=== PATIENT | female | born 1935 | race Caucasian/White ===

== ENCOUNTER → 2017-02-12 | Outpatient (CLI) | payer MEDICARE, OTHER ==
--- NOTE | 2017-02-12 16:45 | RADRPT ---
PROCEDURE: XR left knee. CLINICAL INDICATION: Knee pain TECHNIQUE: AP weightbearing, lateral weightbearing and sunrise views are available for review. COMPARISON: None available FINDINGS: There is moderate osteoarthrosis involving the medial tibial femoral compartment and mild osteoarthr osis involving the lateral tibial femoral compartment and the patellofemoral compartment. This is as sociated with joint space narrowing, subchondral sclerosis and osteophytosis. There is chondrocalcin osis with medial and lateral meniscal calcification There is otherwise normal mineralization, architecture and alignment. No fractures are identified. No osseous lesions are identified. The soft tissues are unremarkable. IMPRESSION: Moderate osteoarthrosis involving the medial tibial femoral compartment and mild osteoarthrosis invo lving the lateral tibial femoral compartment and the patellofemoral compartment. Chondrocalcinosis RPTAT: HGDB .Neo Suh MD, MD Date Time Electronically viewed and signed by .Neo Suh MD, on 02/12/2017 16:45 .B/
--- NOTE | 2017-02-13 03:50 | HKNOTE ---
DATE OF SERVICE: 02/12/2017 SUMMARY OF VISIT: (See written notes for details). MAIN COMPLAINT: Pain in the left knee. HISTORY OF MAIN COMPLAINT: The patient is an 81-year-old female who underwent a right total knee re placement which was performed by me in 2001. She has been very pleased with the results of the surg joe except that the knee does not flex all the way. She has now developed pain in the left knee without any history of injury. She has been taking [id number] anti-inflammatory medications which did not help much. The knee swells. There is no locking and no instability. She is still playing golf 3 times a week, 18 holes with a golf cart. PAST MEDICAL HISTORY: Includes hysterectomy, knee replacement and gallbladder replacement. PHYSICAL EXAMINATION: LEFT KNEE: 3+ crepitus in the knee and none in the patella. 1+ effusion. Pain on forced flexion. RIGHT KNEE: Scar of previous knee replacement, extension is full, flexion to 95 degrees. IMAGING: Plain x-rays of the left knee obtained today (3 views) show moderate degenerative changes of the medial and lateral compartments. DIAGNOSIS: Degenerative osteoarthritis of the left knee without any symptoms suggestive of an inter nal derangement. MANAGEMENT: Under sterile conditions, gave injection of 2 mL of Kenalog and 6 mL of 2% lidocaine in to the left knee joint. She will be seen again as necessary for further evaluation and treatment. Dictated By: COLLIN AGUILAR/TIFFANY Conf#: [id number] DID#: [id number]
== END | disposition home or self-care (01) ==
LOC: HKI 13:53
DX: M17.12 Unilateral primary osteoarthritis, left knee (principal)
CPT/HCPCS: 20610; 73562; G0463

== ENCOUNTER → 2017-03-06 | Outpatient (CLI) | payer MEDICARE, OTHER ==
--- NOTE | 2017-03-07 06:39 | HKNOTE ---
DATE OF SERVICE: 03/06/2017 The patient states that the cortisone injection I gave into her left knee at the last visit gave her very little relief (for 5 days). She has a great deal of pain, especially since she played golf 2 days ago. The pain is constantly present, but is aggravated by walking, weightbearing and stair cli mbing. She also has restless legs syndrome. She is on Mirapex. The left knee swells and it occasionally locks. There is no instability. PHYSICAL EXAMINATION: The patient walks without a walking aid. She has an antalgic gait. VITAL SIGNS: Blood pressure 125/60, temperature 98.9. LEFT KNEE: The left knee shows normal alignment. Active and passive extension is 0 degrees. Active and passive flexion is 135 degrees. The medial and lateral collateral ligaments and cruciate ligamen ts are intact. Delia test is negative. There is no scarring, crepitus, or cysts. The patella track s normally. There is no tenderness on the articular surface of the patella or in the patellar groove . The Q angle is normal. 1+ effusion, tender over the medial joint line. Extension lacks 3 degrees. Flexion lacks 20 degre es. Marked pain at the limits of motion. MANAGEMENT: The patient is being sent for MRI scan of the knee and I will call her with the result as soon as it is available. Dictated By: COLLIN AGUILAR/TIFFANY Conf#: [id number] DID#: [id number]
== END | disposition home or self-care (01) ==
LOC: HKI 14:36
DX: M25.562 Pain in left knee (principal); R22.42 Localized swelling, mass and lump, left lower limb

== ENCOUNTER → 2017-04-03 | Outpatient (CLI) | payer MEDICARE, OTHER ==
[~2017-04-03] MED LIST: ESTR2TAB PO; MORPHINE ORAL; MULT-853 PO; MV-M1TAB37 PO; PRAM0.1224 PO; SOLI5TAB5 PO; TESTOSTERONE
--- NOTE | 2017-04-10 07:18 | HKNOTE ---
DATE OF SERVICE: 04/03/2017 HISTORY OF PRESENT ILLNESS: The patient comes in for preoperative examination for her operative arthroscopy. She is scheduled for operative arthroscopy on 04/04/2017. She continues to have significant symptoms due to her knee. The recent MRI shows that she has a displaced FLAP tear of the medial meniscus and as well has a torn lateral meniscus. She is in good health at this time. She is being cleared for surgery by Dr. Franklin Lucero. Numerous questions were asked and answered. She will stay overnight because she lives alone and there is no one to take her home on 04/04 and no one to care for her when she gets home. She will have a 23 hour stay. Dictated By: Leonides Harrell MD /bret/cory /Document#: [id number]
== END | disposition home or self-care (01) ==
LOC: HKI 14:16
DX: Z01.818 Encounter for other preprocedural examination (principal)
CPT/HCPCS: G0463

== ENCOUNTER 2017-04-04 06:23 | Observation (INO) | payer MEDICARE, OTHER ==
[2017-04-03 15:39] VITALS: BMI 20.7
[~2017-04-04] VITALS: Ht 170.2 cm; Wt 59.9 kg
[2017-04-04] VITALS (21 sets, daily range): BP systolic 107–151; BP diastolic 52–87; PULSE 52–66; RESP 17–18; Ht 170.2 cm; Wt 59.9 kg
[2017-04-04] MEDS ORDERED: ETOMIDATE 20 MG INJ ONE (07:00)
[2017-04-04] MEDS ORDERED: DEXAMETHASONE 4 MG/ML 1 ML INJ IV ONE (07:00)
[2017-04-04] MEDS ORDERED: oxyCODONE (CR) 10 MG TAB [oxyCONTIN] PO ONE (07:00)
[2017-04-04] MEDS ORDERED: LANSOPRAZOLE 30 MG CAP PO ONE (07:00)
[2017-04-04] MEDS ORDERED: VANCOMYCIN 1 GM (PMX) 250 ML IVPB SCH (07:00)
[2017-04-04] MEDS ORDERED: ACETAMINOPHEN 1000MG/100ML IV 100 ML IVPB ONE (07:00)
[2017-04-04] MEDS ORDERED: ONDANSETRON 4 MG INJ IV ONE (07:00)
[2017-04-04] MEDS ORDERED: CELECOXIB 200 MG CAP PO ONE (07:00)
[2017-04-04] MEDS ORDERED: EPHEDrine SULFATE 50 MG/5 ML SYG ONE (07:00)
[2017-04-04] MEDS ORDERED: ESTR2TAB PO (07:03)
[2017-04-04] MEDS ORDERED: MULT-853 PO (07:03)
[2017-04-04] MEDS ORDERED: PRAM0.1224 PO (07:03)
[2017-04-04] MEDS ORDERED: SOLI5TAB5 PO (07:03)
[2017-04-04] MEDS ORDERED: MV-M1TAB37 PO (07:03)
[2017-04-04] MEDS ORDERED: MORPHINE ORAL (07:03)
[2017-04-04] MEDS ORDERED: TESTOSTERONE (07:03)
[2017-04-04] MEDS: LACTATED RINGER'S 1,000 ML IV* SCH ×2 (07:05→14:11)
[2017-04-04] MEDS ORDERED: morphine SULFATE/PF (10 MG/10 ML) INJ ONE (07:45)
[2017-04-04] MEDS ORDERED: ROPIVACAINE 0.5 % 30 ML VIAL ONE (07:45)
[2017-04-04] MEDS ORDERED: KETOROLAC 30 MG INJ ONE (07:45)
[2017-04-04] MEDS ORDERED: BUPIVACAINE 0.25%/EPI (SDV) 30 ML INJ ONE (07:45)
[2017-04-04] MEDS ORDERED: MIDAZOLAM 1 MG/ML 2 ML INJ ONE (08:01)
[2017-04-04] MEDS ORDERED: PROPOFOL 20 ML ONE (08:02)
[2017-04-04] MEDS ORDERED: LIDOCAINE 2% (SDV) 5 ML INJ ONE (08:02)
[2017-04-04] MEDS ORDERED: FENTAnyl 50 MCG/ML VIAL ONE (08:02)
[2017-04-04] MEDS ORDERED: METOCLOPRAMIDE 10 MG INJ ONE (08:02)
--- NOTE | 2017-04-04 08:15 | HPN ---
Date/Time of Note Date/Time of Note DATE: 04/04/17 TIME: 08:15 Interval H&P Admission Note Pt. seen H&P reviewed: No system changes CURTIS BAY PA-C Apr 04, 2017 08:15
--- NOTE | 2017-04-04 09:51 | PDOCDIS ---
Discharge Instructions DIAGNOSIS Discharge Diagnosis Status post left knee partial medial and lateral meniscectomy CONDITION Patient Condition: Stable HOME CARE INSTRUCTIONS: Diet Instructions: Regular ACTIVITY: Activity Restrictions: Slowly Increase Activity Rest between Activity Avoid heavy lifting No Sexual Activity Do not Drive Do not operate Machinery Do not operate Power Tool Avoid Heavy Housework Keep Limb Elevated (While at rest and apply ice modalities.) Weight Bearing (Weightbearing as tolerated. May use crutch for assisted ambulation.) Bathing Restrictions: Shower (May shower but keep area of operation dry during shower until patient is seen at postoperative visit.) FOLLOW UP/APPOINTMENTS Follow-up Plan Follow-up in outpatient office on 04/08/2017 at 2:15 PM CURTIS BAY PA-C Apr 04, 2017 09:51
[2017-04-04] MEDS ORDERED: HYDROCODONE/APAP (10/325) TAB PO PRN (10:00)
[2017-04-04] MEDS ORDERED: morphine 10 MG INJ IV PRN (10:00)
[2017-04-04] MEDS ORDERED: ONDANSETRON 4 MG INJ IV PRN ×2 (10:00)
[2017-04-04] MEDS ORDERED: HYDROCODONE/APAP (5/325) TAB PO PRN (10:00)
[2017-04-04] MEDS ORDERED: ACETAMINOPHEN 1000MG/100ML IV 100 ML IVPB SCH (10:00)
[2017-04-04] MEDS: HYDROmorphONE (0.2 MG/ML) 10ML SYG IV PRN ×2 (10:12→10:17)
--- NOTE | 2017-04-04 13:32 | CONS ---
Date/Time of Note Date/Time of Note DATE: 04/04/17 TIME: 13:22 Assessment/Plan Assessment/Plan Problems: (1) Restless legs syndrome Status: Chronic Comment: Cont. mirapex and nighttime morphine. Hopefully will remain controlled as pt. indicates very resistant symptoms. (2) Urge incontinence Status: Chronic Comment: Cont. vesicare (3) Menopausal and perimenopausal disorder Status: Chronic Comment: Cont. home compounded hormones (4) Tear of meniscus of left knee Status: Resolved Comment: Doing well POD#0 w/ some mild nausea as anesthesia reaction. Pt. to have PT and likely will go home tomorrow. This is ok from med standpoint. Consultation Date/Type/Reason Admit Date/Time Apr 04, 2017 at 09:48 Date of Consultation: Apr 04, 2017 Type of Consultation: Medicine Reason for Consultation Medical Management Referring Provider: COLLIN MAO MD Hx of Present Illness 82 y/o C F w/ h/o RLS, urinary urge incontinence, and OA p/w 1 m. h/o L knee acute pain. Found not to be OA but meniscal tear. Did not respond to injection therapy. Now here for scheduled meniscus repair which was done this am. Pt. POD#0 and doing well. C/o mild nausea but no other complaints. Constitutional: improved, no complaints Eyes: no complaints ENT: no complaints Respiratory: no complaints Cardiovascular: no complaints Gastrointestinal: nausea Genitourinary: no complaints Musculoskeletal: no complaints Neurologic: no complaints Past Medical History Medical History: other (RLS, urge incontinence, OA) Past Surgical History Past Surgical Hx: cholecystectomy, other (ALANNAH, R TKA) Family History Significant Family History: no pertinent family hx Social History b. [place], some college, mostly [employer] mother w/ minimal work, now , 2 children, 1 Alcohol Use: occasionally Smoking Status: Former smoker (4.5 pack-year of smoking) Drug Use: none Exam/Review of Systems Vital Signs Vitals VS - Last 72 Hours, by Label Date Time Temp Pulse Resp B/P Pulse Ox O2 Delivery O2 Flow Rate FiO2 04/04/17 10:29 54 17 127/52 100 Nasal Cannula 2.0 04/04/17 10:24 52 17 133/55 100 Nasal Cannula 2.0 04/04/17 10:19 58 18 124/58 99 Nasal Cannula 2.0 04/04/17 10:14 64 18 137/70 97 Nasal Cannula 2.0 04/04/17 10:09 56 18 141/68 98 Nasal Cannula 2.0 04/04/17 10:04 66 18 142/67 96 Nasal Cannula 2.0 04/04/17 09:59 60 18 150/63 99 Nasal Cannula 2.0 04/04/17 09:56 52 18 139/78 100 Nasal Cannula 2.0 04/04/17 09:54 52 18 147/61 100 Nasal Cannula 2.0 04/04/17 09:52 52 18 151/59 100 Nasal Cannula 2.0 04/04/17 09:50 52 18 145/59 100 Nasal Cannula 2.0 04/04/17 09:49 98.4 04/04/17 09:45 98.2 65 18 145/63 99 Nasal Cannula 3.0 04/04/17 07:06 97.4 55 18 136/63 98 Room Air Vital Signs Date Time Temp Pulse Resp B/P Pulse Ox O2 Delivery O2 Flow Rate FiO2 04/04/17 10:29 54 17 127/52 100 Nasal Cannula 2.0 04/04/17 09:49 98.4 Exam Constitutional: alert, oriented, well developed Psych: nl mood/affect, no complaints Eyes: EOMI, PERRL, nl conjunctiva, nl lids, nl sclera ENMT: mucosa pink and moist, nl external ears & nose Neck: non-tender, supple, No bruits, No masses, No thyromegaly Respiratory: clear to auscultation, normal air movement Cardiovascular: nl pulses, regular rate and rhythm, No edema, No murmurs/extra sounds, No rub Gastrointestinal: bowel sounds, nl liver, spleen, non-tender, soft, No mass, No rebound or guarding Musculoskeletal: nl extremities to inspection Extremities: normal pulses, No clubbing, No cyanosis, No edema Neurological: 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 intact, nl mental status, nl speech, nl strength Medications Medications Current Medications Lactated Ringer's (Lr) 1,000 ml @ 125 mls/hr Q8H IV* Last administered on 04/04t 07:05; Admin Dose 125 MLS/HR; Start 04/04/17 at 07:00; Stop 7/21/17 at 14 :59 Acetaminophen/ Hydrocodone Bitart ([place] ([address])) 2 tab Q4H PRN PO PAIN LEVEL 4-7; Start 04/04/17 at 10:00; Stop 04/04/17 at 14:00 Morphine Sulfate (morphine) 5 mg Q4H PRN IV PAIN 8-10; Start 04/04/17 at 10:00 ; Stop 04/04/17 at 14:00 Acetaminophen/ Hydrocodone Bitart ([place] (325)) 1 tab Q4H PRN PO PAIN LEVEL 1 -3; Start 04/04/17 at 10:00; Stop 04/04/17 at 14:00 Ondansetron HCl (Zofran Inj) 4 mg Q4H PRN IV NAUSEA AND/OR VOMITING; Start at 10:00; Stop 04/04/17 at 14:00 JESSIKA KINCAID MD Apr 04, 2017 13:31
[2017-04-04] MEDS ORDERED: PHENOL 1.4% SOLN 180 ML BTL MT PRN (20:00)
[2017-04-04] MEDS ORDERED: morphine LIQ (10 MG/5 ML) CUP PO SCH ×2 (21:00)
[2017-04-04] MEDS ORDERED: PRAMIPEXOLE 0.125 MG TAB PO SCH (21:00)
[2017-04-04] MEDS: [UNRECOGNIZED DRUG - MIXTURE] PO SCH (21:34)
[2017-04-05] MEDS ORDERED: ONDANSETRON 4 MG INJ IV PRN
[2017-04-05] MEDS ORDERED: HYDROCODONE/APAP (5/325) TAB PO PRN ×2
[2017-04-05] MEDS ORDERED: morphine LIQ (10 MG/5 ML) CUP PO PRN
[2017-04-05] MEDS ORDERED: morphine LIQ (10 MG/5 ML) CUP PO ONE
[2017-04-05] MEDS ORDERED: ACETAMINOPHEN 325 MG TAB PO PRN
[2017-04-05] MEDS ORDERED: ZOLPIDEM 5 MG TAB PO PRN (00:30)
[2017-04-05 08:00] VITALS: BP_SYST 107; BP_SYST 115; BP_DIAS 50; BP_DIAS 54; RESP 18; RESP 20
[2017-04-05] MEDS ORDERED: TESTOSTERONE PO SCH (09:00)
[2017-04-05] MEDS ORDERED: SOLIFENACIN 5 MG TAB PO SCH (09:00)
[2017-04-05] MEDS ORDERED: ESTRADIOL 1 MG TAB PO SCH ×2 (09:00)
[2017-04-05 09:37] VITALS: BP 111/56; PULSE 55
[2017-04-05] MEDS: [UNRECOGNIZED DRUG - MIXTURE] PO SCH (09:40)
--- NOTE | 2017-04-05 10:55 | PN ---
Date/Time of Note Date/Time of Note DATE: 04/05/17 TIME: 10:54 Assessment/Plan Lines/Catheters IV Catheter Type (from Nrsg): Saline Lock Assessment/Plan Assessment/Plan Stable for discharge home -pain meds prn -WBAT -d/c home -follow up with Dr. Harrell as previously scheduled Subjective 24 Hr Interval Summary Denies pain. Having mild nausea. Wants to go home. Exam/Review of Systems Vital Signs Vitals Vital Signs Date Time Temp Pulse Resp B/P Pulse Ox O2 Delivery O2 Flow Rate FiO2 04/05/17 09:37 55 111/56 04/05/17 08:00 97.7 18 98 04/04/17 21:00 2.0 04/04/17 14:00 Nasal Cannula Intake and Output 04/04/17 04/04/17 04/05/17 15:00 23:00 07:00 Intake Total 2100 ml 820 ml 350 ml Output Total 5 ml 500 ml 400 ml Balance 2095 ml 320 ml -50 ml Exam Free Text/Dictation Dressing dry Thigh soft 5/5 Quadriceps, Tibialis Anterior, EHL, Gastroc, Soleus, Peroneals Normal sensation Palpable DT/PT, CR <2 sec No distal edema KYLIE DELA CRUZ PA-C Apr 05, 2017 10:55
[2017-04-05] MEDS ORDERED: PRAMIPEXOLE 0.125 MG TAB PO SCH (12:00)
--- NOTE | 2017-04-07 09:56 | DS ---
Date/Time of Note Date/Time of Note DATE: 04/07/17 TIME: 09:54 Discharge Summary Admission/Discharge Info Admit Date/Time Apr 04, 2017 at 09:48 Discharge Date/Time Apr 05, 2017 at 12:11 Discharge Diagnosis Status post left knee partial medial and lateral meniscectomy Patient Condition: Stable Hospital Course On the day of admission, the patient underwent left knee arthroscopic surgery with partial medial and lateral meniscectomy Intraoperative complications: None Postoperative complications: None The patient was given prophylactic antibiotics. Patient was placed on 23 hour observation status post surgery. Patient underwent observation with no complications. Patient was then discharged home. Discharge Temperature: 97.7 The patient was discharged home. The patient will be seen in office at scheduled postoperative evaluation date given on their preoperative exam. Should patient complain of any problems prior to scheduled postoperative evaluation date, they may call into outpatient clinic to determine if they need to be scheduled at sooner appointment to be seen immediately if needed. Discharge medications: As per medication reconciliation form Diet: Same as preadmission diet. This is Curtis Gonzalez PA-C dictating discharge summary for Dr. Leonides Harrell. Home Meds Reported Medications Pramipexole* (Mirapex*) 0.125 Mg Tablet, 0.125 MG PO TID, TAB 04/04/17 [Morphine Tab] No Conflict Check, 15 ORAL QHS 04/04/17 Estradiol* (Estradiol*) 2 Mg Tablet, 2 MG PO DAILY, TAB 04/04/17 [P Testosterone] No Conflict Check 04/04/17 Solifenacin* (Vesicare*) 5 Mg Tablet, 5 MG PO DAILY, TAB 04/04/17 Mv-Mn/FA/Vit K/Lycop/Lut/Zeaxa (Ocuvite Eye + Multi Tablet) 1 Each Tablet, 1 EACH PO, TAB 04/04/17 Multivits-Min/Iron/FA/Lutein (Centrum Silver Women Tablet) 1 Each Tablet, 1 EACH PO, TAB 04/04/17 Follow-up Plan 04/08/2017. Primary Care Provider Care Physician CURTIS South PA-C Apr 07, 2017 09:56
--- NOTE | 2017-04-07 09:56 | OPR ---
DATE OF OPERATION: 04/04/2017 SURGEON: Leonides Harrell MD AIRCRAFT MOTOR MECHANIC: Sarmad Vegas. ANESTHESIOLOGIST: PREOPERATIVE DIAGNOSIS: Degenerative osteoarthritis plus internal derangement of the left knee. POSTOPERATIVE DIAGNOSIS: 1. Compound tears of the medial meniscus. 2. Compound tears of the lateral meniscus. 3. Moderate degenerative osteoarthritis of the left knee. OPERATION PERFORMED: 1. Diagnostic arthroscopy. 2. Partial medial menisectomy. 3. Posterior lateral menisectomy. FINDINGS AT SURGERY: Medial meniscus was found to consist of number of tags of meniscus that resulted from multiple tears. It is easy to see how these many separate fragments could cause instability and locking of the knee. The lateral meniscus, similarly showed compound tears to a lesser degree. The articular cartilage on the medial and lateral compartments showed moderate degenerative osteoarthritis on a scale of 10, probably in the region of the 5/10. There was no completely exposed subarticular bone. There were no unstable areas of cartilage that needed to be removed. DESCRIPTION OF PROCEDURE: Under general anesthesia the left leg was prepared and draped in the usual sterile fashion. A tourniquet was not used. A stand inferomedial, inferolateral portals were used. The knee was systematic inspected and the above findings were noted. Using the werewolf ablation one, as well as a variety of, basket forceps and the motorized intra-articular shaver a subtotal medial menisectomy was performed. The remaining meniscus was balanced and stable. The cruciate ligaments were found to be intact in the lateral compartment a variety of basket forceps and the werewolf wand, we used to smooth out the unstable sections of lateral meniscus. The remaining meniscus was balanced and stable. There were two or three areas where I felt that the werewolf coblation may be beneficial and these areas were smoothed over. At the end of the procedure the knee was copiously irrigated to remove contained fragments. The wound was closed utilizing interrupted nylon sutures. The knee was injected with a mixture of Naropin and Toradol. The usual sterile dressings were applied. The patient's condition at the end of the procedure was satisfactory. She returned to the Recovery room in stable and condition. Dictated By: Leonides Harrell MD /bret/siena /Document#: [id number]
== END 2017-04-05 12:11 | disposition home or self-care (01) ==
LOC: SDS 06:23 → MS1 09:48
DX: M17.12 Unilateral primary osteoarthritis, left knee (principal); M23.204 Derangement of unspecified medial meniscus due to old tear or injury, left knee; M23.201 Derangement of unspecified lateral meniscus due to old tear or injury, left knee
CPT/HCPCS: 29880; G0378; J0131; J1100; J1170; J1885; J2250; J2274; J2405; J2765; J2795; J3010; J3370; J7120

== ENCOUNTER → 2017-04-10 | Outpatient (CLI) | payer MEDICARE, OTHER ==
--- NOTE | 2017-04-10 15:09 | PN ---
Date/Time of Note Date/Time of Note DATE: 04/10/17 TIME: 15:05 Outpatient Progress Note Chief Complaint Postop left knee arthroscopy with partial medial and lateral meniscectomy. HPI 82-year-old female presents today for postoperative left knee arthroscopy status post lateral and medial meniscectomy performed on 04/04/2017. In regards to pain patient states that she feels her pain is well managed but does have discomfort with weightbearing. Patient is using front wheeled walker for assisted ambulation. Denies any complications to the wound. Denies any calf pain. Denies any chest pain/tightness. Overall doing well but patient states that she is having some difficulty as far as range of motion status post surgery. Review of Systems Const: No Fever, no chills, no Fatigue, normal appetite, no diaphoresis. Resp: No SOB, no wheezing, no chest pain. CV: No chest pain, no palpitaions, no LUCIANO. Physical Exam Blood pressure is 116/57, temperature is 97.9, pulse of 71, respiratory rate is 12, height is 5 foot 7 inches, weight is 130 pounds General Appearance: well-developed, well-nourished, in no acute distress. Left knee: Surgical wounds are clean dry and intact with no signs of infection. No tenderness to palpation on exam today. Patient is able to flex up to 115- 120. About 15 lag from full extension. Patient has discomfort past 120 flexion. Abnormal and antalgic gait secondary to left knee surgery. Using walker for assisted ambulation. Normal sensory examination to light touch. Allergies Coded Allergies: No Known Allergy (Unverified , 04/04/17) Assessment/Plan * Physical therapy prescription provided today. Patient was advised to initiate physical therapy after next appointment when sutures are removed. * At home therapy discussed today. Patient states that she is having lack from full extension but daughter mentions today that when she is at home she is lying with her leg in full extension without issue. * Arthroscopic pictures discussed in detail today. Copy of pictures were provided to the patient. * Follow-up next week for suture removal and repeat evaluation. Medications Home Meds Reported Medications Pramipexole* (Mirapex*) 0.125 Mg Tablet, 0.125 MG PO TID, TAB 04/04/17 [Morphine Tab] No Conflict Check, 15 ORAL QHS 04/04/17 Estradiol* (Estradiol*) 2 Mg Tablet, 2 MG PO DAILY, TAB 04/04/17 [P Testosterone] No Conflict Check 04/04/17 Solifenacin* (Vesicare*) 5 Mg Tablet, 5 MG PO DAILY, TAB 04/04/17 Mv-Mn/FA/Vit K/Lycop/Lut/Zeaxa (Ocuvite Eye + Multi Tablet) 1 Each Tablet, 1 EACH PO, TAB 04/04/17 Multivits-Min/Iron/FA/Lutein (Centrum Silver Women Tablet) 1 Each Tablet, 1 EACH PO, TAB 04/04/17 CURTIS BAY PA-C Apr 10, 2017 15:08
== END | disposition home or self-care (01) ==
LOC: HKI 14:06
DX: M25.562 Pain in left knee (principal)

== ENCOUNTER → 2017-04-17 | Outpatient (CLI) | payer MEDICARE, OTHER ==
--- NOTE | 2017-04-17 14:40 | PN ---
Date/Time of Note Date/Time of Note DATE: 04/17/17 TIME: 14:37 Outpatient Progress Note Chief Complaint Status post left knee arthroscopy with partial medial and lateral meniscectomy HPI 82-year-old female presents today for postoperative appointment status post left knee arthroscopy with partial medial and lateral meniscectomy performed on 04/04/2017. Denies any pain complaints to the left knee. Function has improved. No longer using assisted ambulatory device. Feels that she is returning to normal. Denies any complications to the wound. Review of Systems Const: No Fever, no chills, no Fatigue, normal appetite, no diaphoresis. Resp: No SOB, no wheezing, no chest pain. CV: No chest pain, no palpitaions, no LUCIANO. Physical Exam Blood pressure is 100/60, temperature is 98, pulse is 62, respiratory rate is 12, height is 5 foot 7 inches, weight is 130 pounds General Appearance: well-developed, well-nourished, in no acute distress. Left knee: Slight limp with ambulation. No pain on ambulation. Patient is able to fully extend and flex up to 120-125. No pain with range of motion. No tenderness to palpation. Sutures are clean dry and intact with no signs of infection. Normal sensory examination to light touch. Allergies Coded Allergies: No Known Allergy (Unverified , 04/04/17) Assessment/Plan * Suture removal performed today. Steri-Strips applied. * At this stage patient is doing well. Dr. Harrell present for examination today and he has advised that patient may gradually return to normal activity as tolerated. * Follow-up as needed. Should there be any complications in the future, she may return for repeat evaluation. Patient was made aware however, that she does have degenerative changes to the knee and when she is returning to her normal activity, to gradually increase when she is confident and comfortable and knee is stable. Medications Home Meds Reported Medications Pramipexole* (Mirapex*) 0.125 Mg Tablet, 0.125 MG PO TID, TAB 04/04/17 [Morphine Tab] No Conflict Check, 15 ORAL QHS 04/04/17 Estradiol* (Estradiol*) 2 Mg Tablet, 2 MG PO DAILY, TAB 04/04/17 [P Testosterone] No Conflict Check 04/04/17 Solifenacin* (Vesicare*) 5 Mg Tablet, 5 MG PO DAILY, TAB 04/04/17 Mv-Mn/FA/Vit K/Lycop/Lut/Zeaxa (Ocuvite Eye + Multi Tablet) 1 Each Tablet, 1 EACH PO, TAB 04/04/17 Multivits-Min/Iron/FA/Lutein (Centrum Silver Women Tablet) 1 Each Tablet, 1 EACH PO, TAB 04/04/17 CURTIS BAY PA-C Apr 17, 2017 14:40
== END | disposition home or self-care (01) ==
LOC: HKI 13:41
DX: Z47.89 Encounter for other orthopedic aftercare (principal); S83.282D Other tear of lateral meniscus, current injury, left knee, subsequent encounter; S83.242D Other tear of medial meniscus, current injury, left knee, subsequent encounter